=== PATIENT | male | born 1950 | race Two or more races ===

== ENCOUNTER 2019-03-08 17:15 | Emergency (ER) | payer SELFPAY ==
[~2019-03-08] VITALS: Ht 180.3 cm; Wt 81.6 kg
[2019-03-08 17:20] VITALS: BP 128/94
== END 2019-03-08 19:43 | disposition left against medical advice (07) ==
LOC: EDBD 17:15 → ER 17:15
DX: R10.11 Right upper quadrant pain (principal); Z53.21 Procedure and treatment not carried out due to patient leaving prior to being seen by health care provider